=== PATIENT | female | born 1995 | race Caucasian/White ===

== ENCOUNTER 2021-08-14 15:47 | Emergency (ER) | payer OTHER ==
--- OUTSIDE RECORDS SUMMARY | 2021-08-14 15:49 | XMS REPORT | Continuity of Care Document ---
:1995 Author Organization [facility] t Address [address] [place] [address] Care Team Providers Name Role Phone HELD Attending Clinician Unavailable Problems This patient has no known problems. Allergies, Adverse Reactions, Alerts This patient has no known allergies or adverse reactions. Medications This patient has no known medications. Procedures This patient has no known procedures. Encounters Start End Encounter Admission Attending Care Care Encounter Source Date/Time Date/Time Type Type Clinicians Facility Department ID 2021-07-26 2021-07-26 Outpatient HELD, [facility] [id number] [place] 00:00:00 00:00:00 ELISHA [address] 2021-07-26 2021-07-26 Outpatient HELD, [facility] [id number] [place] 00:00:00 00:00:00 ELISHA [address] 2020-08-02 2020-08-02 Outpatient [facility] [id number] [place] 00:00:00 00:00:[address] 2019-09-28 2019-09-28 Outpatient HELD, [facility] [id number] [place] 00:00:00 00:00:00 ELISHA [address] 2019-09-28 2019-09-28 Outpatient HELD, [facility] [id number] [place] 00:00:00 00:00:00 ELISHA [address] 2019-08-31 2019-08-31 Outpatient HELD, [facility] [id number] [place] 00:00:00 00:00:00 ELISHA [address] 2019-08-18 2019-08-18 Outpatient HELD, [facility] [id number] [place] 00:00:00 00:00:00 ELISHA [address] Results This patient has no known results.
[2021-08-14 16:47] LABS: Urine Blood Negative (Negative); Urine Glucose Negative (Negative); Urine Protein Negative (Negative)
[2021-08-14] MEDS ORDERED: NA CHLORIDE 0.9% 1,000 ML ONE (16:50)
[2021-08-14] MEDS ORDERED: ONDANSETRON 4 MG/2 ML VIAL ONE ×2 (16:50→20:16)
[2021-08-14 16:55] LABS: Absolute Lymphocytes (CBC) 1.9 K/uL (0.7-4.9); Hematocrit 38.8 % (36.0-45.0); Lymphocytes % 18.8 % (15.3-44.8); MPV 7.2 fL (7.6-11.3)
[2021-08-14 17:04] LABS: Calcium Oxalate Crystals- Ur PRESENT (NONE SEEN); Urine Bacteria <20 /HPF (<20); Urine RBC <5 /HPF (NONE SEEN)
[2021-08-14 17:29] LABS: Albumin 3.5 g/dL (3.4-5.0); Bilirubin Total 0.2 mg/dL (0.2-1.0); Potassium 3.9 mmol/L (3.5-5.1); Protein, Total 7.7 g/dL (6.4-8.2)
[2021-08-14] MEDS ORDERED: ACETAMINOPHEN 500 MG TAB ONE (20:16)
--- NOTE | 2021-08-14 21:10 | RAD REPORT ---
EXAM DESCRIPTION: US - Abdomen Exam Limited - 08/14/2021 8:44 pm CLINICAL HISTORY: ABD PAIN COMPARISON: No comparisonsNo comparisons FINDINGS: The gallbladder demonstrates no gallstones. No pericholecystic fluid or gallbladder wall t hickening. The common bile duct is normal measuring 3 mm. The liver demonstrates no findings of intrahepatic biliary dilatation. IMPRESSION: Unremarkable examination.
--- NOTE | 2021-08-14 21:13 | RAD REPORT ---
EXAM DESCRIPTION: US - Transvaginal OB - 08/14/2021 8:44 pm CLINICAL HISTORY: ABD CRAMPING, COMPARISON: No comparisons FINDINGS: Single IUP identified. The crown-rump length of the fetus measures 3.5 cm which is consist ent with 10 week 1 day. Yolk sac is identified. heart rate measured at 146 beats/min. Small sub chorionic hemorrhage measuring less than 25% of surface area of the gestational sac. The uterus measures 11 cm. The left ovary measures 3.4 x 1.8 x 2 cm with volume of 6.4 mL. Vascular f low is present. The right ovary is not visualized. IMPRESSION: Single IUP with positive heart tones measuring 10 week 1 day with ADALID of 2. Small subchorionic hemorrhage (less than 25% surface area of the gestational sac) which is typical ly of little clinical significance. Vascular flow is present in the left ovary. The right ovary was not visualized.
--- NOTE | 2021-08-14 21:29 | EDPHYS ---
Physician Documentation [facility] Name: Lisa Campos Age: 26 yrs Sex: Female : 1995 Arrival Date: 08/14/2021 Time: 15:49 Bed 6 Private MD: ED Physician Lenin Garcia HPI: 08/14 16:10 This 26 yrs old Female presents to ER via Ambulatory with complaints of 10wks , cp Back Pain, Abdominal Pain. 16:10 The patient presents to the emergency department with abdominal pain, of the upper mid cp abdomen, nausea and vomiting. The estimated gestational age is 10 weeks. course: care: private OB physician, Leakage of Fluid: none appreciated, Ultrasound: the patient had an ultrasound. Associated signs and symptoms: Pertinent positives: low back pain, Pertinent negatives: chest pain, diarrhea, dysuria, fever, ruptured membranes, vaginal bleeding, vaginal discharge. 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 - Social history:: Smoking status: Patient denies any tobacco usage or history of. Patient/guardian denies using alcohol, street drugs. ROS: 16:15 Constitutional: Negative for body aches, chills, fever, poor PO intake. cp 16:15 Eyes: Negative for injury, pain, redness, and discharge. cp 16:15 ENT: Negative for drainage from ear(s), ear pain, sore throat, difficulty swallowing, difficulty handling secretions. 16:15 Cardiovascular: Negative for chest pain. 16:15 Respiratory: Negative for cough, shortness of breath, wheezing. 16:15 Abdomen/GI: Positive for abdominal pain, nausea and vomiting, Negative for diarrhea, constipation. 16:15 Back: Positive for pain at rest, pain with movement. 16:15 : Negative for urinary symptoms, vaginal bleeding. 16:15 Neuro: Negative for altered mental status, headache, weakness. 16:15 All other systems are negative. Exam: 16:20 Constitutional: The patient appears in no acute distress, alert, awake, non-toxic, well cp developed, well nourished. 16:20 Head/Face: Normocephalic, atraumatic. cp 16:20 Eyes: Periorbital structures: appear normal, Conjunctiva: normal, no exudate, no injection, Sclera: no appreciated abnormality, Lids and lashes: appear normal, bilaterally. 16:20 ENT: External ear(s): are unremarkable, Nose: is normal, Mouth: Lips: moist, Oral mucosa: moist, Posterior pharynx: Airway: no evidence of obstruction, patent. 16:20 Chest/axilla: Inspection: normal, Palpation: is normal, no crepitus, no tenderness. 16:20 Cardiovascular: Rate: normal, Rhythm: regular. 16:20 Respiratory: the patient does not display signs of respiratory distress, Respirations: normal, no use of accessory muscles, no retractions, labored breathing, is not present, Breath sounds: are clear throughout, no decreased breath sounds, no stridor, no wheezing. 16:20 Abdomen/GI: Inspection: abdomen appears normal, Bowel sounds: active, all quadrants, Palpation: soft, in all quadrants, mild abdominal tenderness, in the right upper quadrant and left upper quadrant, rebound tenderness, is not appreciated, involuntary guarding, is not appreciated. 16:20 Back: CVA tenderness, is absent. Vital Signs: 15:54 BP 125 / 80; Pulse 97; Resp 16; Temp 99.0(TE); Pulse Ox 100% on R/A; Weight 63.05 kg jb4 (R); Height 5 ft. 0 in. (152.40 cm) (R); Pain 5/10; 16:55 BP 105 / 73; Pulse 93; Resp 18; Pulse Ox 100% on R/A; ph 20:42 BP 120 / 72; Pulse 87; Resp 16; Pulse Ox 100% on R/A; sm5 21:44 BP 108 / 78; Pulse 73; Resp 17; Pulse Ox 100% on R/A; sm5 15:54 Body Mass Index 27.15 (63.05 kg, 152.40 cm) jb4 MDM: 16:04 Patient medically screened. cp 17:00 Differential diagnosis: STD, ectopic , cholelithiasis, pancreatitis, low back cp pain, UTI, kidney stone. 21:28 Data reviewed: vital signs, nurses notes, lab test result(s), radiologic studies, cp ultrasound. 21:28 Counseling: I had a detailed discussion with the patient and/or guardian regarding: the cp historical points, exam findings, and any diagnostic results supporting the discharge/admit diagnosis, lab results, radiology results, the need for outpatient follow up, an OB/Gyne specialist, to return to the emergency department if symptoms worsen or persist or if there are any questions or concerns that arise at home. Response to treatment: Improved. No vomiting observed and pain improved. Will discharge to home for continued monitoring. 08/14 16:04 Order name: Urine Microscopic Only; Complete Time: 17:35 08/14 16:23 Order name: CBC with Diff; Complete Time: 17:35 08/14 20:36 Interpretation: Normal except: MPV 7.2. 08/14 16:23 Order name: CMP; Complete Time: 17:35 08/14 20:36 Interpretation: AST 11; GLOB 4.2; A/G 0.8; Reviewed. 08/14 16:23 Order name: Lipase; Complete Time: 17:35 08/14 20:30 Interpretation: LIP 104; Reviewed. 08/14 16:23 Order name: Quantitative Hcg; Complete Time: 17:35 08/14 20:36 Interpretation: Abnormal: HCGQ [id number]. 08/14 16:48 Order name: Urine Dipstick-Ancillary; Complete Time: 17:35 EDAR 08/14 20:37 Interpretation: UKET Trace; Reviewed. 08/14 16:49 Order name: Urine --Ancillary (enter results) iw 08/14 17:37 Order name: US Abdomen Limited: RUQ; Complete Time: 21:27 cp 08/14 17:37 Order name: US Transvaginal Ob; Complete Time: 21:27 08/14 20:33 Order name: Rh Type lp1 08/14 21:09 Order name: Rh Typing; Complete Time: 21:27 EDMS 08/14 16:04 Order name: Urine Dipstick-Ancillary (obtain specimen); Complete Time: 16:09 08/14 16:04 Order name: Urine Test (obtain specimen); Complete Time: 16:09 cp 08/14 16:23 Order name: IV Saline Lock; Complete Time: 16:50 cp 08/14 16:23 Order name: Labs collected and sent; Complete Time: 16:50 cp Administered Medications: 16:56 Drug: NS 0.9% 1000 ml Route: IV; Rate: 1 bolus; Site: right antecubital; ph 19:00 Follow up: IV Status: Completed infusion; IV Intake: 1000ml 5 16:58 CANCELLED (not availablee): Pepcid (famotidine) 20 mg IVP once; dilute with 10 mL 0.9% ph NaCl; give over 2 minutes 20:41 Drug: Zofran (Ondansetron) 4 mg Route: IVP; Site: right antecubital; 5 21:46 Follow up: Response: No adverse reaction 5 20:41 Drug: Tylenol 1000 mg Route: PO; sm5 21:46 Follow up: Response: No adverse reaction 5 Disposition: 21:28 Co-signature as Attending Physician, Lenin HERNANDEZ was immediately available on-site ms3 in the Emergency Department for consultation in the care of the patient. . Disposition Summary: 08/14/21 21:28 Discharge Ordered Location: Home cp Problem: new cp Symptoms: have improved cp Condition: Stable cp Diagnosis - related conditions, unspecified, first trimester cp - Low back pain cp - Upper abdominal pain, unspecified cp Followup: cp - With: Private Physician - When: 1 week - Reason: Recheck today's complaints Discharge Instructions: - Discharge Summary Sheet cp - Abdominal Pain During cp - Care cp - First Trimester of cp Forms: - Medication Reconciliation Form cp - Thank You Letter cp - Antibiotic Education cp - Prescription Opioid Use cp - Work release form 5 Prescriptions: - Diclegis 10-10 mg Oral tablet,delayed release (DR/EC) - take 1 tablet by ORAL route as directed before meals and 2 tablets at bedtime; cp 60 tablet; Refills: 0, Product Selection Permitted - Pepcid 20 mg Oral Tablet - take 1 tablet by ORAL route every 12 hours for 10 days; 20 tablet; Refills: 0, cp Product Selection Permitted - Zofran 4 mg Oral Tablet - take 1 tablet by ORAL route every 12 hours As needed; 20 tablet; Refills: 0, cp Product Selection Permitted Signatures: Dispatcher [employer] Gabriel Brewster PA PA jmm Hall, Patricia, RN RN ph Jorge Clark PA PA cp Bryson, James, FLETCHER RN jb4 Lenin Garcia DO DO ms3 Ria Shukla RN RN sm5 Corrections: (The following items were deleted from the chart) 16:58 16:23 Pepcid (famotidine) 20 mg IVP once; dilute with 10 mL 0.9% NaCl; give over 2 ph minutes ordered. cp 16:58 16:58 Pepcid (famotidine) 20 mg IVP once; dilute with 10 mL 0.9% NaCl; give over 2 ph minutes ordered. ph
--- NOTE | 2021-08-14 21:29 | ER ---
Nurse's Notes [facility] Name: Lisa Campos Age: 26 yrs Sex: Female : 1995 Arrival Date: 08/14/2021 Time: 15:49 Bed 6 Private MD: Diagnosis: related conditions, unspecified, first trimester;Low back pain;Upper abdominal pain, unspecified Presentation: 08/14 15:54 Chief complaint: Patient states: Since Saturday I have had low to mid back pain and a jb4 burning pain in my stomach. I have tried tylenol, ICE hot, heating bad, nothing has helped. I called my OB and I was told to come in. Coronavirus screen: At this time, the client does not indicate any symptoms associated with coronavirus-19. Ebola Screen: No symptoms or risks identified at this time. Initial Sepsis Screen: Does the patient meet any 2 criteria? No. Patient's initial sepsis screen is negative. Does the patient have a suspected source of infection? Yes: Acute abdominal pain. Risk Assessment: Do you want to hurt yourself or someone else? Patient reports no desire to harm self or others. Onset of symptoms was August 12, 2021. Transition of care: patient was not received from another setting of care. 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 - Social history:: Smoking status: Patient denies any tobacco usage or history of. Patient/guardian denies using alcohol, street drugs. Screenin:55 Abuse screen: Denies threats or abuse. Denies injuries from another. Nutritional ph screening: No deficits noted. Tuberculosis screening: No symptoms or risk factors identified. Fall Risk None identified. Assessment: 16:54 General: Appears in no apparent distress. uncomfortable, Behavior is calm, cooperative, ph appropriate for age, Denies fever, feeling ill. Pain: Complains of pain in lumbar area, left low back and right low back Pain radiates to left mid back and right mid back. Neuro: Level of Consciousness is awake, alert, obeys commands, Oriented to person, place, time, situation. Cardiovascular: Capillary refill < 3 seconds in bilateral fingers Patient's skin is warm and dry. Respiratory: Airway is patent Trachea midline Respiratory effort is even, unlabored. GI: Reports epigastric pain, nausea. : Reports pain in lower back Denies burning with urination, urinary frequency. Derm: Skin is intact, is healthy with good turgor, Skin is pink, warm \T\ dry. Musculoskeletal: Circulation, motion, and sensation intact. Range of motion: intact in all extremities. 18:00 Reassessment: Patient appears in no apparent distress at this time. Patient and/or ph family updated on plan of care and expected duration. Pain level reassessed. Patient is alert, oriented x 3, equal unlabored respirations, skin warm/dry/pink. Awaiting US. 20:42 General: Appears in no apparent distress. Behavior is cooperative. Pain: Complains of sm5 pain in left upper quadrant and right upper quadrant and back. Neuro: No deficits noted. Duran Agitation-Sedation Scale (RASS): 0 - Alert and Calm Level of Consciousness is awake, alert, obeys commands, Oriented to person, place, time, situation. Cardiovascular: No deficits noted. Capillary refill < 3 seconds Patient's skin is warm and dry. Respiratory: No deficits noted. Airway is patent Trachea midline Respiratory effort is even, unlabored. GI: Reports epigastric pain, nausea. 21:45 Reassessment: No changes from previously documented assessment. Patient and/or family sm5 updated on plan of care and expected duration. Pain level reassessed. Vital Signs: 15:54 BP 125 / 80; Pulse 97; Resp 16; Temp 99.0(TE); Pulse Ox 100% on R/A; Weight 63.05 kg jb4 (R); Height 5 ft. 0 in. (152.40 cm) (R); Pain 5/10; 16:55 BP 105 / 73; Pulse 93; Resp 18; Pulse Ox 100% on R/A; ph 20:42 BP 120 / 72; Pulse 87; Resp 16; Pulse Ox 100% on R/A; sm5 21:44 BP 108 / 78; Pulse 73; Resp 17; Pulse Ox 100% on R/A; sm5 15:54 Body Mass Index 27.15 (63.05 kg, 152.40 cm) jb4 ED Course: 15:49 Patient arrived in ED. mr 15:49 Jorge Clark PA is PHCP. cp 15:49 Lenin Garcia DO is Attending Physician. cp 15:57 Triage completed. jb4 16:00 Arm band placed on right wrist. jb4 16:09 Lynn Chavez, RN is Primary Nurse. ph 16:49 Bed in low position. Call light in reach. tp1 16:49 Inserted saline lock: 20 gauge in right antecubital area, using aseptic technique. tp1 Blood collected. 19:21 Primary Nurse role handed off by Lynn Chavez, FLETCHER mw2 19:38 Ria Shukla RN is Primary Nurse. 5 20:45 US Abdomen Limited: RUQ In Process Unspecified. EDMS 20:46 US Transvaginal Ob In Process Unspecified. EDMS 20:57 Rh Type Sent. 5 21:10 PHCP role handed off by Jorge Clark PA [facility] 21:10 Gabriel Perez PA is PHCP. [facility] 21:28 PHCP role handed off by Gabriel Perez PA cp 21:28 Jorge Clark PA is PHCP. cp 21:45 No provider procedures requiring assistance completed. IV discontinued, intact, 5 bleeding controlled, No redness/swelling at site. Pressure dressing applied. Administered Medications: 16:56 Drug: NS 0.9% 1000 ml Route: IV; Rate: 1 bolus; Site: right antecubital; ph 19:00 Follow up: IV Status: Completed infusion; IV Intake: 1000ml [facility] 16:58 CANCELLED (not availablee): Pepcid (famotidine) 20 mg IVP once; dilute with 10 mL 0.9% ph NaCl; give over 2 minutes 20:41 Drug: Zofran (Ondansetron) 4 mg Route: IVP; Site: right antecubital; [facility] 21:46 Follow up: Response: No adverse reaction 5 20:41 Drug: Tylenol 1000 mg Route: PO; 5 21:46 Follow up: Response: No adverse reaction 5 Medication: 16:55 VIS not applicable for this client. ph Intake: 19:00 IV: 1000ml; Total: 1000ml. [facility] Outcome: 21:28 Discharge ordered by . cp 21:45 Discharged to home ambulatory, with significant other. 5 21:45 Condition: stable 21:45 Discharge instructions given to patient, significant other, Instructed on discharge instructions, follow up and referral plans. medication usage, Demonstrated understanding of instructions, follow-up care, medications, Prescriptions given X 3. 21:46 Patient left the ED. 5 Signatures: Dispatcher [employer] EDMS Gabriel Perez PA PA jmm Rivera, Yana mr Lynn Chavez, RN RN Jorge Montez PA PA cp Bryson, James, RN RN jb4 Caitlin Gomez mw2 Kasandra Liao tp1 Ria Shukla, RN RN sm5
[2021-08-14 22:20] VITALS: TEMP 99; O2SAT 100
[2021-08-14 22:26] VITALS: BP 108/78
== END 2021-08-14 21:46 | disposition home or self-care (01) ==
LOC: ER 15:47
DX: O26.891 Other specified pregnancy related conditions, first trimester (principal); O99.341 Other mental disorders complicating pregnancy, first trimester; F32.A Depression, unspecified; Z3A.10 10 weeks gestation of pregnancy
CPT/HCPCS: 96361; 85025; 36415; 81025; 86901; 84702; 83690; 80053; 76705; 76817; 96374; 99284; J7030; J2405 ×2; 81003; 81015